=== PATIENT | female | born 2000 | race Caucasian/White ===

== ENCOUNTER 2021-07-10 17:04 | Inpatient (IN) | payer OTHER ==
[~2021-07-10] VITALS: Ht 167.6 cm; Wt 72.6 kg
[~2021-07-10 17:04] MED LIST: COLACE 100MG C100 MG PO; IBUPROFEN600 MG PO; LORTAB 5-325 M1 EACH PO; PRENATAL VITAM1 EAC5 PO
[2021-07-10 18:32] LABS: HEMOGLOBIN 11.3 gm/dl (12.3-15.3); RED BLOOD COUNT 4.23 M/UL (4.00-5.10); WHITE BLOOD COUNT 15.6 K/UL (4.5-11.0)
[2021-07-11] MEDS ORDERED: FERROUS SULFAT325 MG PO (19:55)
[2021-07-11] MEDS ORDERED: COLACE 100MG C100 MG PO (19:55)
[2021-07-11] MEDS ORDERED: IBUPROFEN600 MG PO (19:55)
[2021-07-12 01:59] LABS: HEMOGLOBIN 10.3 gm/dl (12.3-15.3)
== END 2021-07-12 18:05 | disposition home or self-care (01) | DRG 807 ==
LOC: GENOP 17:04 → OB 17:32
PROVIDERS: Obstetrics & Gynecology; ADMIT Obstetrics & Gynecology
PROC: 10E0XZZ Delivery of Products of Conception, External Approach (ICD-10-PCS; principal; 2021-07-10)
PROC: 4A1HXCZ Monitoring of Products of Conception, Cardiac Rate, External Approach (ICD-10-PCS; 2021-07-10)
PROC: 3E033VJ Introduction of Other Hormone into Peripheral Vein, Percutaneous Approach (ICD-10-PCS; 2021-07-10)
DX: O76 Abnormality in fetal heart rate and rhythm complicating labor and delivery (principal); Z37.0 Single live birth; Z20.822 Contact with and (suspected) exposure to COVID-19; O70.0 First degree perineal laceration during delivery; Z3A.39 39 weeks gestation of pregnancy
CPT/HCPCS: 81001; 85014; 85018; 85025; J2590; J7120; U0002